=== PATIENT | male | born 1995 | race Caucasian/White ===

== ENCOUNTER → 2020-03-30 12:51 | Outpatient (CLI) | payer OTHER, SELFPAY ==
[2020-04-01 09:49] LABS: COVID19 Sendout Detected (Not Detected)
== END ==
PROVIDERS: Referring Provider Family Medicine; Visit Provider Family Medicine
DX: U07.1 COVID-19 (principal)
CPT/HCPCS: 87635

== ENCOUNTER → 2020-04-10 12:05 | Outpatient (CLI) | payer OTHER, SELFPAY ==
[2020-04-10 13:13] LABS: COVID19 -Nasal RAPID Negative (Negative)
== END ==
PROVIDERS: PCP Family Medicine; Referring Provider Family Medicine; Visit Provider Family Medicine
DX: Z11.59 Encounter for screening for other viral diseases (principal)
CPT/HCPCS: 87635